=== PATIENT | female | born 1945 | race Caucasian/White ===

== ENCOUNTER 2023-01-30 07:22 | Inpatient (IN) ==
[2023-01-30] MEDS ORDERED: 0.9 % SODIUM CHLORIDE 1,000 ML IV ONE (07:24)
[2023-01-30 07:42] LABS: POC Calcium, Ionized 1.13 (1.16-1.32); POC Creatinine 0.9 (0.6-1.2); POC Potassium 3.8 (3.3-5.1)
--- NOTE | 2023-01-30 07:42 | Emergency Department Note ---
HPI General Chief complaint: Blood Pressure Problem Stated complaint: BP problem Time Seen by Provider: 01/30/23 07:24 Source: patient, family and EMS Mode of arrival: EMS Limitations: no limitations History of Present Illness HPI Narrative: Narrative: Patient presents to the ED via EMS due to complaints of hypotensive. EMS was called due to patient being weak and reported some shortness of breath. When this arrived they noted that her blood pressure was low in the 60s systolically. Stated improved up to about 86 systolically. Patient's daughter said that patient recently had a lung biopsy on the right side for mass which was done on 01/25/2023. Patient that she is just been feeling very weak. States that she fell twice last night on her right side. Patient states she is not sure if she hit her head during any of the 2 falls last night. She also takes blood pressure medication. Patient denies fever, chills, nausea, vomiting, cough, sputum production, cardiac chest pain, heart palpitations, scott pain, diarrhea, slurred speech, facial droopiness, extremity weakness, extremity numbness. Patient denies any other alleviating or aggravating factors. Patient expressed desire to be a DNR and her daughter who is at bedside confirms this. Related Data Home Medications Medication Instructions Recorded Confirmed acetaminophen 325 mg tablet 325 - 650 mg PO Q6H PRN Pain 12/31/22 01/21/23 albuterol sulfate 90 mcg/actuation 1 puff inhalation Q4H 12/31/22 01/21/23 aerosol inhaler aspirin 325 mg tablet 325 mg PO QDAY 12/31/22 01/25/23 atorvastatin 40 mg tablet 40 mg PO QHS 12/31/22 01/21/23 cholecalciferol (vitamin D3) 25 25 mcg PO QDAY 12/31/22 01/21/23 mcg (1,000 unit) tablet fluticasone propionate 50 1 spray intranasal QDAY 12/31/22 01/21/23 mcg/actuation nasal spray,suspension telmisartan 40 mg tablet 40 mg PO QHS 12/31/22 01/21/23 tolterodine 2 mg capsule,extended 2 mg PO QDAY 12/31/22 01/21/23 release 24 hr (Detrol LA) multivitamin 1 tab PO QDAY 01/11/23 01/21/23 polyethylene glycol 3350 17 gram 17 g PO QDAY PRN 01/11/23 01/21/23 oral powder packet Previous Rx's Medication Instructions Recorded tiotropium bromide 18 mcg capsule 1 cap inhalation QDAY #90 puffs 01/12/23 with inhalation device (Spiriva with HandiHaler) apixaban 5 mg tablet (Eliquis) 5 mg PO BID #180 tabs 01/19/23 tiotropium bromide 2.5 2 puff inhalation QDAY #4 grams 01/19/23 mcg/actuation mist for inhalation (Spiriva Respimat) Allergies Allergy/AdvReac Type Severity Reaction Status Date / Time hydrocodone Allergy Itching Verified 01/25/23 08:45 oxycodone Allergy Itching Verified 01/25/23 08:45 Review of Systems ROS ROS Narrative: Narrative: All systems ED: reviewed and negative except as stated. [facility] Narrative Patient History Narrative: Narrative: Medical/Surgical/Family History All Active Problems (Updated 01/30/23 @ 13:33 by Oni Mixon MD) Permanent atrial fibrillation (Acute) COPD (chronic obstructive pulmonary disease) (Acute) Elevated lactic acid level (Acute) Small cell carcinoma of lung (Acute) Acute UTI (Acute) Pleural effusion on right (Acute) Acute hypotension (Acute) Periorbital edema (Acute) Proximal muscle weakness (Acute) No pertinent past medical history (Chronic) Pulmonary embolism (Acute) Lung mass (Acute) Medical History (Updated 01/30/23 @ 13:33 by Oni Mixon MD) Hypertension No pertinent past medical history Surgical History No pertinent past surgical history Family History Mother Dementia Brother Cancer Father High blood pressure Social History Smoking Status: Current every day smoker Alcohol Intake Frequency: does not drink Substance Use: does not use Exam Narrative Narrative: Narrative: General Limitations: no limitations General appearance: Absent in distress Head Head: Present atraumatic Eye Eye: Present PERRL and EOMI ENT ENT: Present normal oropharynx and mucous membranes moist Neck Neck: Present normal inspection; Absent tenderness Chest Chest: Present normal inspection and tenderness Respiratory Respiratory: Present decreased breath sounds (On the right); Absent respiratory distress, wheezes, stridor or accessory muscle use Cardiovascular Cardiovascular: Present regular rate and normal rhythm Adbominal Abdominal: Present soft; Absent tenderness Back Back: Absent CVA tenderness (R), CVA tenderness (L) or L-S tenderness Neurological Neurological: Present alert and oriented X3 Psychiatric Psychiatric: Present normal affect and normal mood Skin Skin: Present warm (WNL) and intact Course Course Course Narrative: Patient was evaluated for hypotension and generalized weakness. UA was positive for UTI. Labs show that patient had normal white cell count with no leukocytosis. Lactic acid was elevated. Patient was tachycardic and tachypneic as well as hypotensive so she does meet sepsis criteria. Patient was bolused IV fluids and given IV Rocephin after blood cultures were obtained. Repeat lactic acid was within normal limits. Chest x-ray obtained with image reviewed myself which was concerning for a large right pleural effusion. CT of the chest was obtained and confirmed large thoracentesis with no pneumothorax. Patient had a recent fall so CT of the head and cervical spine was obtained and was unremarkable. Spoke with the radiologist who actually performed patient's biopsy and he states that there could be blood within that pleural effusion. Discussed with patient and they did want to go ahead with a thoracentesis. Radiologist took patient down to the radiology department and did ultrasound he states that the blood is too coagulated for drainage. He states that the above most likely will resolve on its own as patient would not be a good candidate for chest tube with streptokinase the most likely worsen her bleeding. Patient complained of pain in her right side secondary to a fall so she was given some IV fentanyl as well as oral Tylenol. Patient blood pressure did improve after IV fluids. She is still very weak and tachycardic. Believe patient would benefit for hospitalization. Case discussed with hospitalist who has agreed to admit the patient. Patient again is a DNR. Reevaluation(s) Reevaluation #1: Patient remains hemodynamic stable. No new complaints at this time. Time: 09:00 Consultations Consultation #1: Case discussed with hospitalist, Dr. Mixon, who has agreed to admit the patient. Time: 12:35 Vital Signs Vital signs: Vital Signs Temperature 97.8 F 01/30/23 07:33 Pulse Rate 96 H 01/30/23 07:33 Respiratory Rate 16 01/30/23 07:33 Blood Pressure 86/51 01/30/23 07:33 Pulse Oximetry (%) 96 01/30/23 07:33 Oxygen Delivery Method Room Air 01/30/23 07:33 Temperature 97.8 F 01/30/23 07:33 Pulse Rate 97 H 01/30/23 13:30 Respiratory Rate 25 H 01/30/23 12:46 Blood Pressure 92/78 01/30/23 13:30 Pulse Oximetry (%) 92 01/30/23 13:30 Oxygen Delivery Method Room Air 01/30/23 07:33 MDM MDM Narrative Medical decision making narrative: Narrative: Sepsis Sepsis Identified: Yes Time Zero: 1045 Differential Diagnosis Differential Diagnosis: Pneumothorax, sepsis, pneumonia Medical Records Medical records reviewed: Yes I reviewed the patient's medical records. Lab Data Lab results reviewed: Yes I reviewed the patient's lab results. 01/30/23 11:46 Labs: Lab Results 01/30/23 01/30/23 01/30/23 Range/Units 07:30 07:36 07:39 WBC 4.8 (4.5-11.0) K/mcL RBC 3.34 L (3.59-5.38) M/mcL Hgb 9.9 L (11.2-15.7) g/dL Hct 31.7 L (34.1-44.9) % POC Hct 29.0 L (36-48) MCV 94.9 (80.0-100.0) fL MCH 29.6 (26.0-34.0) pg MCHC 31.2 (31.0-36.0) g/dL RDW 14.6 H (11.5-14.5) % Plt Count 229 (140-440) K/mcL MPV 10.4 (8.8-12.5) fL Immature Gran % (Auto) 0.2 (0.0-0.5) % Neut % (Auto) 50.6 (38.0-78.0) % Lymph % (Auto) 35.3 (15.5-49.0) % Delta % (Auto) 10.2 (1.0-12.0) % Eos % (Auto) 2.7 (0.0-7.0) % Baso % (Auto) 1.0 (0.0-2.0) % Lymph # (Auto) 1.69 (1.50-4.80) K/mcL Delta # (Auto) 0.49 (0.10-0.90) K/mcL Eos # (Auto) 0.13 (0.00-0.70) K/mcL Baso # (Auto) 0.05 (0.00-0.30) K/mcL Immature Gran # 0.01 (0.00-0.05) K/mcl Absolute Neutrophils 2.42 (1.80-8.00) K/mcL Plt Func Collagen/Epi (82-175) sec POC VBG pH 7.38 (7.32-7.42) POC VBG pCO2 at Temp 44.7 (41-51) POC VBG pO2 25 (25-40) POC VBG HCO3 26.7 (24-28) POC VBG Total CO2 28.0 (25-29) POC Venous O2 Sat 44.0 (40-70) POC VBG Base Excess 2.0 (-2-2) VBG Lactic Acid 2.9 H (0.5-2) POC Sodium 138 (133-145) POC Potassium 3.8 (3.3-5.1) POC Chloride 102 (96-108) POC Total CO2 25.0 (22-30) POC BUN 19 (6-20) POC Creatinine 0.9 (0.6-1.2) POC Glucose 173 H (70-105) POC WB Ioniz Calcium 1.13 L (1.16-1.32) Urine Color Urine Appearance (Clear) Urine pH (5.0-9.0) Ur Specific [place] (1.000-1.035) Urine Protein (Negative) mg/dL Urine Glucose (UA) (Negative) mg/dL Urine Ketones (Negative) mg/dL Urine Occult Blood (Negative) mg/dL Urine Nitrate (Negative) Urine Bilirubin (Negative) mg/dL Urine Urobilinogen mg/dL Ur Leukocyte Esterase (Negative) /uL Urine RBC (0-1) /hpf Urine WBC (0-4) /hpf Ur Squamous Epith Cells (0-4) /hpf Urine Bacteria (0) /hpf Urine Mucus (None) /hpf Urine Yeast (Budding) (None) /hpf Ur Culture Indicated? 01/30/23 01/30/23 01/30/23 Range/Units 10:15 10:50 10:55 WBC (4.5-11.0) K/mcL RBC (3.59-5.38) M/mcL Hgb (11.2-15.7) g/dL Hct (34.1-44.9) % POC Hct (36-48) MCV (80.0-100.0) fL MCH (26.0-34.0) pg MCHC (31.0-36.0) g/dL RDW (11.5-14.5) % Plt Count (140-440) K/mcL MPV (8.8-12.5) fL Immature Gran % (Auto) (0.0-0.5) % Neut % (Auto) (38.0-78.0) % Lymph % (Auto) (15.5-49.0) % Delta % (Auto) (1.0-12.0) % Eos % (Auto) (0.0-7.0) % Baso % (Auto) (0.0-2.0) % Lymph # (Auto) (1.50-4.80) K/mcL Delta # (Auto) (0.10-0.90) K/mcL Eos # (Auto) (0.00-0.70) K/mcL Baso # (Auto) (0.00-0.30) K/mcL Immature Gran # (0.00-0.05) K/mcl Absolute Neutrophils (1.80-8.00) K/mcL Plt Func Collagen/Epi (82-175) sec POC VBG pH 7.45 H (7.32-7.42) POC VBG pCO2 at Temp 45.8 (41-51) POC VBG pO2 16 L (25-40) POC VBG HCO3 31.7 H (24-28) POC VBG Total CO2 33.0 H (25-29) POC Venous O2 Sat 23.0 L (40-70) POC VBG Base Excess 8.0 H* (-2-2) VBG Lactic Acid 1.4 1.6 (0.5-2) POC Sodium (133-145) POC Potassium (3.3-5.1) POC Chloride (96-108) POC Total CO2 (22-30) POC BUN (6-20) POC Creatinine (0.6-1.2) POC Glucose (70-105) POC WB Ioniz Calcium (1.16-1.32) Urine Color Yellow Urine Appearance Hazy A (Clear) Urine pH 5.0 (5.0-9.0) Ur Specific [place] 1.014 (1.000-1.035) Urine Protein Negative (Negative) mg/dL Urine Glucose (UA) Negative (Negative) mg/dL Urine Ketones Negative (Negative) mg/dL Urine Occult Blood >=1.0 A (Negative) mg/dL Urine Nitrate Negative (Negative) Urine Bilirubin Negative (Negative) mg/dL Urine Urobilinogen Negative mg/dL Ur Leukocyte Esterase 75 A (Negative) /uL Urine RBC > 182 H (0-1) /hpf Urine WBC 44 H (0-4) /hpf Ur Squamous Epith Cells < 1 (0-4) /hpf Urine Bacteria None (0) /hpf Urine Mucus Few A (None) /hpf Urine Yeast (Budding) Many A (None) /hpf Ur Culture Indicated? yes 01/30/23 01/30/23 Range/Units 11:46 11:46 WBC (4.5-11.0) K/mcL RBC (3.59-5.38) M/mcL Hgb (11.2-15.7) g/dL Hct (34.1-44.9) % POC Hct (36-48) MCV (80.0-100.0) fL MCH (26.0-34.0) pg MCHC (31.0-36.0) g/dL RDW (11.5-14.5) % Plt Count 220 (140-440) K/mcL MPV (8.8-12.5) fL Immature Gran % (Auto) (0.0-0.5) % Neut % (Auto) (38.0-78.0) % Lymph % (Auto) (15.5-49.0) % Delta % (Auto) (1.0-12.0) % Eos % (Auto) (0.0-7.0) % Baso % (Auto) (0.0-2.0) % Lymph # (Auto) (1.50-4.80) K/mcL Delta # (Auto) (0.10-0.90) K/mcL Eos # (Auto) (0.00-0.70) K/mcL Baso # (Auto) (0.00-0.30) K/mcL Immature Gran # (0.00-0.05) K/mcl Absolute Neutrophils (1.80-8.00) K/mcL Plt Func Collagen/Epi 73 L (82-175) sec POC VBG pH (7.32-7.42) POC VBG pCO2 at Temp (41-51) POC VBG pO2 (25-40) POC VBG HCO3 (24-28) POC VBG Total CO2 (25-29) POC Venous O2 Sat (40-70) POC VBG Base Excess (-2-2) VBG Lactic Acid (0.5-2) POC Sodium (133-145) POC Potassium (3.3-5.1) POC Chloride (96-108) POC Total CO2 (22-30) POC BUN (6-20) POC Creatinine (0.6-1.2) POC Glucose (70-105) POC WB Ioniz Calcium (1.16-1.32) Urine Color Urine Appearance (Clear) Urine pH (5.0-9.0) Ur Specific [place] (1.000-1.035) Urine Protein (Negative) mg/dL Urine Glucose (UA) (Negative) mg/dL Urine Ketones (Negative) mg/dL Urine Occult Blood (Negative) mg/dL Urine Nitrate (Negative) Urine Bilirubin (Negative) mg/dL Urine Urobilinogen mg/dL Ur Leukocyte Esterase (Negative) /uL Urine RBC (0-1) /hpf Urine WBC (0-4) /hpf Ur Squamous Epith Cells (0-4) /hpf Urine Bacteria (0) /hpf Urine Mucus (None) /hpf Urine Yeast (Budding) (None) /hpf Ur Culture Indicated? Radiology Data Radiology results reviewed: Yes I reviewed the patient's radiology results. Radiology results narrative: Chest x-ray obtained with image reviewed myself which shows large right pleural effusion, official read pending CT of the chest obtained with image reviewed myself which confirms right pleural effusion. EKG Data EKG #1: EKG attestation: Yes I reviewed and interpreted this EKG. EKG shows normal: sinus rhythm Rate: normal Heart block present: None ST segment elevation in: None ST segment depression in: None QTc: normal QRS morphology: Present normal Interpretation: no acute changes Core Measures AMI Core Measures Followed: Yes Discharge Plan Patient/Caregiver Discharge Instructions Pt seen by [employer] ADVISOR/PA only: No Clinical Impression: Pleural effusion on right, Acute hypotension, Elevated lactic acid level, Small cell carcinoma of lung, Acute UTI Patient Disposition: Xfer As Outpt/Obs ([facility]) Condition: Fair Follow up with: Odin Grimm DO [Primary Care Provider] - Prescriptions: No Action Spiriva with HandiHaler 18 mcg capsule, w/inhalation device 1 cap INHALATION QDAY Qty: 90 1RF Hold Instructions: Order Change Rx Instructions: puncture 1 cap using device; one dose = 2 inhalations Spiriva Respimat 2.5 mcg/actuation mist 2 puff inhalation QDAY Qty: 4 5RF Eliquis 5 mg tablet 5 mg PO BID Qty: 180 0RF multivitamin Tablet 1 tab PO QDAY tolterodine [Detrol LA] 2 mg Capsule,Extended Release 24hr 2 mg PO QDAY atorvastatin 40 mg Tablet 40 mg PO QHS acetaminophen 325 mg Tablet 325 - 650 mg PO Q6H PRN (Reason: Pain) aspirin 325 mg Tablet 325 mg PO QDAY telmisartan 40 mg Tablet 40 mg PO QHS albuterol sulfate 90 mcg/actuation Hfa Aerosol Inhaler 1 puff INHALATION Q4H fluticasone propionate 50 mcg/actuation [place],Suspension 1 spray INTRANASAL QDAY Rx Instructions: administer into each nostril cholecalciferol (vitamin D3) 25 mcg (1,000 unit) Tablet 25 mcg PO QDAY polyethylene glycol 3350 17 gram powder in packet 17 g PO QDAY PRN
--- NOTE | 2023-01-30 08:15 | Cat Scan Report ---
History: Fell, head injury, anticoagulated TECHNIQUE: The brain was imaged without contrast in axial plane at 2.5 mm intervals. Sagittal and coronal reformats were created. The radiation exposure was limited using dose reduction technology. FINDINGS: There are age-related degenerative changes with mild generalized atrophy both above and below the tentorium. Moderate white matter disease is present with patchy areas of decreased attenuation in the centrum semiovale throughout the frontal and parietal lobes. No infarct is detected. There is no hemorrhage or cerebral edema. Ventricles are normal in size line for atrophy. No abnormal extra-axial fluid collection is present. Bone windows show no skull fracture. Comparison with the prior head CT done on 11/16/22 shows no change. IMPRESSION: Stable age-related degenerative changes and no acute head injury Dr. Garcia was called with the report Interpreted and Authenticated by: Fady Kohler 01/30/23
--- NOTE | 2023-01-30 08:17 | Cat Scan Report ---
History: Fell, neck injury, anticoagulated TECHNIQUE: The neck was imaged without contrast in axial plane at 2.5 mm intervals. Sagittal and coronal reformats were created. The radiation exposure was limited using dose reduction technology. FINDINGS: There is a mild dextroscoliotic curvature. Cervico-occipital junction is normal. No fracture, spondylolisthesis or destructive bone lesion are present. Mild disc space narrowing is present at C5-6. There are small to intermediate size posterior bulging disks at C4-5, C5-6 and C6-7. There are also anterior spurs at those levels. The central canal and neural foramina appear normal in caliber. There is no paraspinal mass or hematoma. Large amount of calcified plaque is present in the carotid arteries, right greater than left. 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 Garcia was called with the report Interpreted and Authenticated by: Fady Kohler 01/30/23
--- NOTE | 2023-01-30 08:25 | Cat Scan Report ---
History: Fell last night, chest injury, anticoagulated, recent right lung biopsy on 01/25/23 TECHNIQUE: The chest was imaged without contrast in axial plane at 2.5 mm intervals. Sagittal, coronal and axial MIPS images were created. The radiation exposure was limited using dose reduction technology. There is a large poorly defined tumor encasing the right hilum. Measures roughly 5.8 cm. There is a peripheral mass posteriorly in the right lower lobe which had been biopsied on 01/25/23. Margins are partially obscured by adjacent atelectasis. Patient has developed a large right-sided pleural effusion. This is heterogeneous and may contain blood products. The effusion has increased significantly since the time of the recent biopsy. In addition patient has developed moderate atelectasis throughout the right lung. The left lung is relatively clear with no mass or infiltrate. The heart size is normal. Pacemaker is well-positioned. Atherosclerotic disease is present in the coronary arteries, aorta and great vessels arising from the aorta. Bone windows show an old healed fracture anterolaterally in the right first rib. No acute rib fracture is present and there is no evidence of bone metastasis. IMPRESSION: Large tumor centrally in the right lung with postobstructive atelectasis in the right middle and right lower lobes. Enlarging right-sided pleural effusion which may contain blood products Dr. Garcia was called with the report Interpreted and Authenticated by: Fady Kohler 01/30/23
[2023-01-30 08:36] LABS: Basophils # (Auto) 0.05 K/mcL (0.00-0.30); Eosinophils # (Auto) 0.13 K/mcL (0.00-0.70); Eosinophils % (Auto) 2.7 % (0.0-7.0); Hematocrit 31.7 % (34.1-44.9); Hemoglobin 9.9 g/dL (11.2-15.7); Lymphocytes # (Auto) 1.69 K/mcL (1.50-4.80); Lymphocytes % (Auto) 35.3 % (15.5-49.0); Mean Cell Volume 94.9 fL (80.0-100.0); Mean Corpuscular HGB Conc 31.2 g/dL (31.0-36.0); Mean Platelet Volume 10.4 fL (8.8-12.5); Monocytes # (Auto) 0.49 K/mcL (0.10-0.90); Monocytes % (Auto) 10.2 % (1.0-12.0); Neutrophils % (Auto) 50.6 % (38.0-78.0); Platelet Count 229 K/mcL (140-440); RBC 3.34 M/mcL (3.59-5.38); Red Cell Distribution Width 14.6 % (11.5-14.5); WBC 4.8 K/mcL (4.5-11.0)
--- NOTE | 2023-01-30 09:05 | XRay Report ---
HISTORY: Fell, chest injury, anticoagulated, recent right lung biopsy FINDINGS: There is a moderate size right-sided pleural effusion. There is dense consolidation of the right middle and lower lobes and a moderate diffuse alveolar infiltrate in the right upper lobe. Patient has a known tumor centrally in the right lung which is obscured by overlying consolidative lung and pleural fluid. The left lung is clear. The heart size is normal. No congestive heart failure is present. The pleural effusion and consolidation right lung have become worse since the time of the prior lung biopsy on 01/25/23 No fracture is identified. IMPRESSION: Enlarging right-sided pleural effusion and increasing consolidation in the right lung Interpreted and Authenticated by: Fady Kohler 01/30/23
[2023-01-30] MEDS ORDERED: fentaNYL 100 MCG/2 ML VIAL IV ONE (10:30)
[2023-01-30 11:58] LABS: Appearance,Urine HAZY (Clear); Bilirubin,Urine Negative (Negative); Color,Urine YELLOW; Culture Indicated,Urine yes; Glucose,Urine (UA) Negative (Negative); Ketones,Urine Negative (Negative); Leukocyte Esterase,Urine 75 /uL (Negative); Mucus,Urine FEW /hpf; Nitrate,Urine Negative (Negative); Protein,Urine Negative (Negative); Specific Gravity,Urine 1.014 (1.000-1.035); Urine Blood >=1.0 mg/dL (Negative); Urine Budding Yeast MANY /hpf; Urine RBC > 182 /hpf (0-1); Urine Squamous Epithelial Cell < 1 /hpf (0-4); Urine WBC 44 /hpf (0-4); Urobilinogen,Urine Negative
[2023-01-30] MEDS ORDERED: cefTRIAXone 2 GM in DEXTROSE 5% IN WATER 50 ML IV ONE (12:04)
[2023-01-30] MEDS ORDERED: ONDANSETRON 4 MG/2 ML VIAL IV ONE (12:43)
--- NOTE | 2023-01-30 13:24 | Internal Med History&Physical ---
HPI History of Present Illness Patient information: Note initiated : 01/30/23 at 1:20 pm Service Date, if different from initiated Date: [] Patient: Chrissy Stovall a 77 y/o F admitted on for BP problem. Chief Complaint: [weakness, fall, shortness of breath] Chief complaint: weakness, fall, shortness of breath History of present illness: Ms. Stovall is a 77 year old F history of atrial fibrillation's status post pacemaker, pulmonary embolism on Eliquis, essential hypertensions, COPD, presenting with a few day history of worsening weakness, recent fall, and shortness of breath. The following history is limited by the patient's mentations and clinical situations. Patient is committing of worsening general body weakness, recent fall, and shortness of breath. She does not recall the fall though. She is complaining urinary urgency and hesitancy but she denied any dysuria. She denies any fever or chills. She had was recently being found to have small cell carcinoma of the right lung. She has not started seeing any oncologist just yet. When the EMS arrived, it was reported that her blood pressure was low with systolic in the 60s mmHg. After a bolus of IV fluid given in the ED, the repeat blood pressure became 103/58mmHg. UA suggesting the presence of urinary tract infections. CT of the chest and CT chest showing enlarging right sided central located parenchymal tumor with moderate to large right sided pleural effusions. Our in-house radiologist was consulted for potential thoracentesis but he thinks that it is not a good idea because patient is on blood thinner and the patient is not currently hypoxic. Admission request is called for urinary tract infections, blood pressure management, and general weakness. Patient also need to follow-up with outpatient oncology. Constitutional Constitutional: Present weakness; Absent chills, excessive sweating, fatigue or fever(s) EENT Eyes: Absent blurry vision, change in vision, loss of vision or other visual disturbances Ears: Absent decreased hearing or tinnitus Nose, mouth and throat: Absent abnormal hearing, dry mouth, headache(s), nasal congestion or sore throat Cardiovascular Cardiovascular: Absent chest pain, chest pain at rest, edema, irregular heart rhythm or palpatations Respiratory Respiratory: Present dyspnea; Absent cough or wheezing Gastrointestinal Gastrointestinal: Absent abdominal pain, constipation, diarrhea, nausea or vomiting Genitourinary Genitourinary: Present urinary hesitancy and urinary urgency Musculoskeletal Musculoskeletal: Absent back pain, deformity, limited range of motion, muscle cramps, muscle weakness or numbness Integumentary Integumentary: Absent lesions, rash or wounds Neurological Neurological: Absent focal weakness, headache(s) or numbness Psychiatric Psychiatric: Absent anxiety, depression or hallucinations PFSH PFSH All Active Problems (Updated 01/30/23 @ 13:33 by Oni Mixon MD) Permanent atrial fibrillation (Acute) COPD (chronic obstructive pulmonary disease) (Acute) Elevated lactic acid level (Acute) Small cell carcinoma of lung (Acute) Acute UTI (Acute) Pleural effusion on right (Acute) Acute hypotension (Acute) Periorbital edema (Acute) Proximal muscle weakness (Acute) No pertinent past medical history (Chronic) Pulmonary embolism (Acute) Lung mass (Acute) Medical History (Updated 01/30/23 @ 13:33 by Oni Mixon MD) Hypertension No pertinent past medical history Surgical History No pertinent past surgical history Family History Mother Dementia Brother Cancer Father High blood pressure Social History marital status: occupational status: retired smoking status: Current every day smoker alcohol intake frequency: does not drink substance use type: does not use MEDS/ALLERGIES Home Medications and Allergies Home Medications Medication Instructions Recorded Confirmed Type acetaminophen 325 mg tablet 325 - 650 mg PO Q6H PRN Pain 12/31/22 01/21/23 History albuterol sulfate 90 mcg/actuation 1 puff inhalation Q4H 12/31/22 01/21/23 History aerosol inhaler aspirin 325 mg tablet 325 mg PO QDAY 12/31/22 01/25/23 History atorvastatin 40 mg tablet 40 mg PO QHS 12/31/22 01/21/23 History cholecalciferol (vitamin D3) 25 25 mcg PO QDAY 12/31/22 01/21/23 History mcg (1,000 unit) tablet fluticasone propionate 50 1 spray intranasal QDAY 12/31/22 01/21/23 History mcg/actuation nasal spray,suspension telmisartan 40 mg tablet 40 mg PO QHS 12/31/22 01/21/23 History tolterodine 2 mg capsule,extended 2 mg PO QDAY 12/31/22 01/21/23 History release 24 hr (Detrol LA) multivitamin 1 tab PO QDAY 01/11/23 01/21/23 History polyethylene glycol 3350 17 gram 17 g PO QDAY PRN 01/11/23 01/21/23 History oral powder packet tiotropium bromide 18 mcg capsule 1 cap inhalation QDAY #90 puffs 01/12/23 01/21/23 Rx with inhalation device (Spiriva with HandiHaler) apixaban 5 mg tablet (Eliquis) 5 mg PO BID #180 tabs 01/19/23 01/25/23 Rx tiotropium bromide 2.5 2 puff inhalation QDAY #4 grams 01/19/23 01/21/23 Rx mcg/actuation mist for inhalation (Spiriva Respimat) Allergies Allergy/AdvReac Type Severity Reaction Status Date / Time hydrocodone Allergy Itching Verified 01/25/23 08:45 oxycodone Allergy Itching Verified 01/25/23 08:45 EXAM Constitutional Vitals: Temp Pulse Resp BP Pulse Ox O2 Del Method 36.6 C 107 H 25 H 103/58 94 Room Air 01/30/23 07:33 01/30/23 12:42 01/30/23 12:42 01/30/23 11:31 01/30/23 12:42 01/30/23 07:33 General appearance: cooperative and no acute distress Head Head exam: Present atraumatic and normocephalic Eye Eye exam: Present EOMI and PERRL ENT ENT exam: Present mucous membranes moist, normal exam and normal external ear exam Neck Neck exam: Present normal inspection; Absent lymphadenopathy, tenderness or thyromegaly Respiratory Respiratory exam: Present decreased breath sounds; Absent accessory muscle use, respiratory distress or wheezes Cardiovascular Cardiovascular exam: Present irregular rhythm and tachycardia; Absent JVD Additional comments: pacemaker in place GI/Abdominal GI/Abdominal exam: Present normal bowel sounds and soft; Absent organomegaly or tenderness Extremities Exam Extremities exam: Present full ROM, normal capillary refill and normal inspection; Absent tenderness Neurological Exam Neurological exam: Present alert and CN II-XII intact; Absent motor sensory deficit Additional comments: oriented X2 to person and place Psychiatric Psychiatric exam: Present normal affect and normal mood; Absent anxious or depressed Skin Skin exam: Present dry and intact DATA Data Completed and Pending Labs: Labs from last 24 hours 01/30/23 01/30/23 01/30/23 11:46 11:46 10:55 WBC RBC Hgb Hct POC Hct MCV MCH MCHC RDW Plt Count 220 MPV Immature Gran % (Auto) Neut % (Auto) Lymph % (Auto) [place] % (Auto) Eos % (Auto) Baso % (Auto) Lymph # (Auto) [place] # (Auto) Eos # (Auto) Baso # (Auto) Immature Gran # Absolute Neutrophils PT Pending INR Pending APTT Pending Plt Func Collagen/Epi 73 L POC VBG pH POC VBG pCO2 at Temp POC VBG pO2 POC VBG HCO3 POC VBG Total CO2 POC Venous O2 Sat POC VBG Base Excess VBG Lactic Acid 1.6 POC Sodium POC Potassium POC Chloride POC Total CO2 POC BUN POC Creatinine POC Glucose POC WB Ioniz Calcium Urine Color Urine Appearance Urine pH Ur Specific [place] Urine Protein Urine Glucose (UA) Urine Ketones Urine Occult Blood Urine Nitrate Urine Bilirubin Urine Urobilinogen Ur Leukocyte Esterase Urine RBC Urine WBC Ur Squamous Epith Cells Urine Bacteria Urine Mucus Urine Yeast (Budding) Ur Culture Indicated? 01/30/23 01/30/23 01/30/23 10:50 10:15 07:39 WBC RBC Hgb Hct POC Hct 29.0 L MCV MCH MCHC RDW Plt Count MPV Immature Gran % (Auto) Neut % (Auto) Lymph % (Auto) [place] % (Auto) Eos % (Auto) Baso % (Auto) Lymph # (Auto) [place] # (Auto) Eos # (Auto) Baso # (Auto) Immature Gran # Absolute Neutrophils PT INR APTT Plt Func Collagen/Epi POC VBG pH 7.45 H POC VBG pCO2 at Temp 45.8 POC VBG pO2 16 L POC VBG HCO3 31.7 H POC VBG Total CO2 33.0 H POC Venous O2 Sat 23.0 L POC VBG Base Excess 8.0 H* VBG Lactic Acid 1.4 POC Sodium 138 POC Potassium 3.8 POC Chloride 102 POC Total CO2 25.0 POC BUN 19 POC Creatinine 0.9 POC Glucose 173 H POC WB Ioniz Calcium 1.13 L Urine Color Yellow Urine Appearance Hazy A Urine pH 5.0 Ur Specific [place] 1.014 Urine Protein Negative Urine Glucose (UA) Negative Urine Ketones Negative Urine Occult Blood >=1.0 A Urine Nitrate Negative Urine Bilirubin Negative Urine Urobilinogen Negative Ur Leukocyte Esterase 75 A Urine RBC > 182 H Urine WBC 44 H Ur Squamous Epith Cells < 1 Urine Bacteria None Urine Mucus Few A Urine Yeast (Budding) Many A Ur Culture Indicated? yes 01/30/23 01/30/23 07:36 07:30 WBC 4.8 RBC 3.34 L Hgb 9.9 L Hct 31.7 L POC Hct MCV 94.9 MCH 29.6 MCHC 31.2 RDW 14.6 H Plt Count 229 MPV 10.4 Immature Gran % (Auto) 0.2 Neut % (Auto) 50.6 Lymph % (Auto) 35.3 [place] % (Auto) 10.2 Eos % (Auto) 2.7 Baso % (Auto) 1.0 Lymph # (Auto) 1.69 [place] # (Auto) 0.49 Eos # (Auto) 0.13 Baso # (Auto) 0.05 Immature Gran # 0.01 Absolute Neutrophils 2.42 PT INR APTT Plt Func Collagen/Epi POC VBG pH 7.38 POC VBG pCO2 at Temp 44.7 POC VBG pO2 25 POC VBG HCO3 26.7 POC VBG Total CO2 28.0 POC Venous O2 Sat 44.0 POC VBG Base Excess 2.0 VBG Lactic Acid 2.9 H POC Sodium POC Potassium POC Chloride POC Total CO2 POC BUN POC Creatinine POC Glucose POC WB Ioniz Calcium Urine Color Urine Appearance Urine pH Ur Specific [place] Urine Protein Urine Glucose (UA) Urine Ketones Urine Occult Blood Urine Nitrate Urine Bilirubin Urine Urobilinogen Ur Leukocyte Esterase Urine RBC Urine WBC Ur Squamous Epith Cells Urine Bacteria Urine Mucus Urine Yeast (Budding) Ur Culture Indicated? A/P Assessment and plan (1) Small cell carcinoma of lung: Status: Acute (2) Acute UTI: Status: Acute (3) Acute hypotension: Status: Acute (4) Pleural effusion on right: Status: Acute (5) Pulmonary embolism: Status: Acute (6) COPD (chronic obstructive pulmonary disease): Status: Acute (7) Permanent atrial fibrillation: Status: Acute Narrative A/P Narrative: Assessment and Plans: 1. UTI: Observation med surg telemetry Serial lactic acid Procalcitonin level Blood culture Urine culture s/p IV fluid bolus given in the ED, to be followed by NS@100cc/hr Rocephin Hold oral antihypertensives from home regimen Physical therapy evaluation and treatment for possible placement 2. h/o recently diagnosed right small cell carcinoma of the lung with right sided pleural effusion: Need outpatient appointment with oncology Hold Aspirin/Eliquis in case if and when thoracentesis is indicated Repeat CXR in the morning to follow up Supplemental oxygen therapy 3. h/o hypertension: Currently borderline hypotensives, Hold oral antihypertensives from home regimen 4. h/o permanent atrial fibrillation s/p pacemaker placement: Hold Aspirin/Eliquis in case if and when thoracentesis is indicated Lopressor IV PRN HR>120bpm 5. h/o Pulmonary embolism: Hold Aspirin/Eliquis in case if and when thoracentesis is indicated 6. h/o COPD: Stable, continue bronchodilators from home regimen GI ppx: not currently indicated DVT ppx: SCDs Code status: Full Prognosis: guarded Disposition: observation med surg tele Time Spent With Patient Time: Total time spent is greater than 50% in coordination of care (as documented) at patient's floor/unit and/or counseling patient: Initial: Total time with patient: 55 - 74 minutes
[2023-01-30] MEDS ORDERED: ACETAMINOPHEN 325 MG TABLET PO ONE (13:43)
[2023-01-30 14:55] LABS: INR 1.2 (0.9-1.1); Partial Thromboplastin Time 30.7 sec (20.0-37.0); Prothrombin Time 15.3 sec (11.9-14.5)
--- NOTE | 2023-01-30 15:34 | Ultrasound Report ---
History: Newly diagnosed small cell right-sided lung cancer, large right-sided pleural effusion seen on preceding CT, dyspnea FINDINGS: Patient had been scheduled for a thoracentesis. There is a large amount of organized clot throughout the right chest. Only a small amount of liquefied fluid is seen above the right costophrenic sulcus. The clot cannot be aspirated. There is not enough free fluid to justify thoracentesis. The procedure was canceled. IMPRESSION: Large amount of organized clot throughout the right thorax Interpreted and Authenticated by: Fady Kohler 01/30/23
[2023-01-30] MEDS ORDERED: IOPAMIDOL 100 ML BOTTLE IV ONE (15:40)
[2023-01-30] MEDS ORDERED: ACETAMINOPHEN 325 MG TABLET PO PRN (15:41)
[2023-01-30] MEDS ORDERED: ONDANSETRON 4 MG/2 ML VIAL IV PRN (15:41)
[2023-01-30] MEDS ORDERED: METOPROLOL TARTRATE 5 MG/5 ML VIAL IV PRN (15:41)
[2023-01-30] MEDS ORDERED: IPRATROPIUM/ALBUTEROL 3 ML AMPUL.NEB NEB PRN (15:41)
[2023-01-30] MEDS ORDERED: cefTRIAXone 1 GM in DEXTROSE 5% IN WATER 50 ML IV SCH (15:41)
[2023-01-30] MEDS: 0.9 % SODIUM CHLORIDE 1,000 ML IV SCH (15:57)
[2023-01-30] MEDS: 0.9 % SODIUM CHLORIDE 10 ML SYRINGE IV SCH ×2 (15:57→21:48)
--- NOTE | 2023-01-30 18:35 | Cat Scan Report ---
History: Small cell lung cancer in right side, right-sided hemothorax, chest pain and shortness of breath, evaluate for pulmonary emboli TECHNIQUE: Following injection of intravenous nonionic contrast the patient was imaged during the pulmonary arterial phase scanning from the thoracic inlet through the diaphragms. Sagittal and coronal reformats were created. The radiation exposure was limited using dose reduction technology. FINDINGS: There is a moderate size poorly defined tumor located centrally in the right lung. This encases the right hilum. Is causing high-grade extrinsic compression of the pulmonary arteries to the right upper lobe and right middle lobe. Is also causing severe compression and narrowing of the bronchus intermedius. There is significant postobstructive atelectasis of the right middle and lower lobes. A vague alveolar infiltrate is present in the right upper lobe. There is a large right-sided hemothorax. The clot is of varying age with some solid and other parts semisolid. Preceding ultrasound showed most of the clot is solid and could not be drained with ultrasound guidance. The large hemothorax is displacing the mediastinum to the left. No intraluminal filling defects are present within the pulmonary arteries. The arteries and left lung are normal. The recently biopsied mass located posteriorly in the right lower lobe is obscured by surrounding clot. Bone windows show no rib fracture or bone metastasis. The heart size is normal. Patient has a pacemaker. IMPRESSION: No evidence of pulmonary emboli. Tumor located centrally in the right lung which is occluding and distorting the arteries and bronchi. Large right-sided hemothorax Dr. Mixon was called with the report Interpreted and Authenticated by: Fady Kohler 01/30/23
[2023-01-30] MEDS ORDERED: SENNOSIDES 1 TABLET PO SCH (21:00)
[2023-01-30] MEDS ORDERED: DOCUSATE SODIUM 100 MG CAPSULE PO SCH (21:00)
[2023-01-30] MEDS ORDERED: traZODone HCL 50 MG TABLET PO PRN (21:00)
[2023-01-30] MEDS: morphine 2 MG/ML VIAL IV PRN (21:41)
[2023-01-30] MEDS ORDERED: ALBUTEROL SULFATE 60 PUFF INHALER INH SCH (23:45)
[2023-01-30] MEDS ORDERED: POLYETHYLENE GLYCOL 3350 17 GM PACKET PO PRN (23:58)
--- NOTE | 2023-01-31 00:08 | Discharge Summary ---
Discharge Provider Provider IMPORTANT FOLLOW-UP INFORMATION FOR PCP: Patient information: Note initiated : 01/31/23 at 12:07 am Service Date, if different from initiated Date: [] Patient: Chrissy Stovall 77 y/o F admitted on 01/30/23 for BP problem. Chief Complaint: [] Date of admission: 01/30/23 15:39 Discharge date: 01/31/23 Primary care physician: Odin Grimm DO Attending physician on admission: Oni Mixon Consults: 01/30/23 12:29 Consult to Physician [CONS] Stat Comment: Consulting Provider: Oni Mixon Reason For Exam: Physician to Consult Attending physician on discharge: Oni Mixon COURSE Hospital Course Hospital course: Ms. Stovall is a 77 year old F history of atrial fibrillation's status post pacemaker, pulmonary embolism on Eliquis, essential hypertensions, COPD, presenting with a few day history of worsening weakness, recent fall, and shortness of breath. The following history is limited by the patient's mentations and clinical situations. Patient is committing of worsening general body weakness, recent fall, and shortness of breath. She does not recall the fall though. She is complaining urinary urgency and hesitancy but she denied any dysuria. She denies any fever or chills. She had was recently being found to have small cell carcinoma of the right lung. She has not started seeing any oncologist just yet. When the EMS arrived, it was reported that her blood pressure was low with systolic in the 60s mmHg. After a bolus of IV fluid given in the ED, the repeat blood pressure became 103/58mmHg. UA suggesting the presence of urinary tract infections. CT of the chest and CT chest showing enlarging right sided central located parenchymal tumor with moderate to large right sided pleural effusions. Our in-house radiologist was consulted for potential thoracentesis but he thinks that it is not a good idea because patient is on blood thinner and the patient is not currently hypoxic. Admission request is called for urinary tract infections, blood pressure management, and general weakness. Patient also need to follow-up with outpatient oncology. Subsequent CT chest angiogram showing large tumor measuring >6cm in the right hilum with extrinsic mass effects with compression of the right pulmonary arteries and right bronchus. Right hemothorax with blood clots of different ages, as well as solid tumor burden and semi-solid substances. I discussed the case with hospitalist Dr. Mcleod as well as their slotter operator helper for potential transfer for higher level of care. They kindly accepted the patient to their PCU unit. Discharge diagnosis: Small cell lung cancer, respiratory failure, right hemothorax, UTI Time Spent with Patient Time attestation: Total time spent providing and/or coordinating discharge services: Time spent: Greater than 30 minutes EXAM Constitutional Vitals: Temp Pulse Resp BP Pulse Ox O2 Del Method O2 Flow Rate 36.7 C 90 20 112/60 95 [place] 6 01/31/23 00:00 01/31/23 00:00 01/31/23 00:00 01/31/23 00:00 01/31/23 00:00 01/31/23 00:00 01/31/23 00:00 General appearance: cooperative and mild distress Head Head exam: Present atraumatic and normocephalic Eye Eye exam: Present EOMI and PERRL ENT ENT exam: Present mucous membranes moist, normal exam and normal external ear exam Additional comments: Nasal cannula in place Neck Neck exam: Present normal inspection; Absent lymphadenopathy, tenderness or thyromegaly Respiratory Respiratory exam: Present decreased breath sounds; Absent accessory muscle use, respiratory distress or wheezes Cardiovascular Cardiovascular exam: Present normal rate and rhythm; Absent JVD Additional comments: Pacemaker in place GI/Abdominal GI/Abdominal exam: Present normal bowel sounds and soft; Absent organomegaly or tenderness Extremities Exam Extremities exam: Present full ROM, normal capillary refill and normal inspection; Absent tenderness Neurological Exam Neurological exam: Present alert and CN II-XII intact; Absent motor sensory deficit Additional comments: oriented X2 to person and place only Psychiatric Psychiatric exam: Present normal affect and normal mood; Absent anxious or depressed Skin Skin exam: Present dry and intact Discharge Data Data Completed and Pending Labs on day of discharge: Labs from last 24 hours 01/30/23 01/30/23 01/30/23 11:46 11:46 10:55 WBC RBC Hgb Hct POC Hct MCV MCH MCHC RDW Plt Count 220 MPV Immature Gran % (Auto) Neut % (Auto) Lymph % (Auto) [place] % (Auto) Eos % (Auto) Baso % (Auto) Lymph # (Auto) [place] # (Auto) Eos # (Auto) Baso # (Auto) Immature Gran # Absolute Neutrophils PT 15.3 H INR 1.2 H APTT 30.7 Plt Func Collagen/Epi 73 L POC VBG pH POC VBG pCO2 at Temp POC VBG pO2 POC VBG HCO3 POC VBG Total CO2 POC Venous O2 Sat POC VBG Base Excess VBG Lactic Acid 1.6 POC Sodium POC Potassium POC Chloride POC Total CO2 POC BUN POC Creatinine POC Glucose POC WB Ioniz Calcium Procalcitonin Urine Color Urine Appearance Urine pH Ur Specific [place] Urine Protein Urine Glucose (UA) Urine Ketones Urine Occult Blood Urine Nitrate Urine Bilirubin Urine Urobilinogen Ur Leukocyte Esterase Urine RBC Urine WBC Ur Squamous Epith Cells Urine Bacteria Urine Mucus Urine Yeast (Budding) Ur Culture Indicated? 01/30/23 01/30/23 01/30/23 10:50 10:15 07:39 WBC RBC Hgb Hct POC Hct 29.0 L MCV MCH MCHC RDW Plt Count MPV Immature Gran % (Auto) Neut % (Auto) Lymph % (Auto) [place] % (Auto) Eos % (Auto) Baso % (Auto) Lymph # (Auto) [place] # (Auto) Eos # (Auto) Baso # (Auto) Immature Gran # Absolute Neutrophils PT INR APTT Plt Func Collagen/Epi POC VBG pH 7.45 H POC VBG pCO2 at Temp 45.8 POC VBG pO2 16 L POC VBG HCO3 31.7 H POC VBG Total CO2 33.0 H POC Venous O2 Sat 23.0 L POC VBG Base Excess 8.0 H* VBG Lactic Acid 1.4 POC Sodium 138 POC Potassium 3.8 POC Chloride 102 POC Total CO2 25.0 POC BUN 19 POC Creatinine 0.9 POC Glucose 173 H POC WB Ioniz Calcium 1.13 L Procalcitonin Urine Color Yellow Urine Appearance Hazy A Urine pH 5.0 Ur Specific [place] 1.014 Urine Protein Negative Urine Glucose (UA) Negative Urine Ketones Negative Urine Occult Blood >=1.0 A Urine Nitrate Negative Urine Bilirubin Negative Urine Urobilinogen Negative Ur Leukocyte Esterase 75 A Urine RBC > 182 H Urine WBC 44 H Ur Squamous Epith Cells < 1 Urine Bacteria None Urine Mucus Few A Urine Yeast (Budding) Many A Ur Culture Indicated? yes 01/30/23 01/30/23 01/30/23 07:36 07:30 07:30 WBC 4.8 RBC 3.34 L Hgb 9.9 L Hct 31.7 L POC Hct MCV 94.9 MCH 29.6 MCHC 31.2 RDW 14.6 H Plt Count 229 MPV 10.4 Immature Gran % (Auto) 0.2 Neut % (Auto) 50.6 Lymph % (Auto) 35.3 [place] % (Auto) 10.2 Eos % (Auto) 2.7 Baso % (Auto) 1.0 Lymph # (Auto) 1.69 [place] # (Auto) 0.49 Eos # (Auto) 0.13 Baso # (Auto) 0.05 Immature Gran # 0.01 Absolute Neutrophils 2.42 PT INR APTT Plt Func Collagen/Epi POC VBG pH 7.38 POC VBG pCO2 at Temp 44.7 POC VBG pO2 25 POC VBG HCO3 26.7 POC VBG Total CO2 28.0 POC Venous O2 Sat 44.0 POC VBG Base Excess 2.0 VBG Lactic Acid 2.9 H POC Sodium POC Potassium POC Chloride POC Total CO2 POC BUN POC Creatinine POC Glucose POC WB Ioniz Calcium Procalcitonin 0.09 Urine Color Urine Appearance Urine pH Ur Specific [place] Urine Protein Urine Glucose (UA) Urine Ketones Urine Occult Blood Urine Nitrate Urine Bilirubin Urine Urobilinogen Ur Leukocyte Esterase Urine RBC Urine WBC Ur Squamous Epith Cells Urine Bacteria Urine Mucus Urine Yeast (Budding) Ur Culture Indicated? Discharge Plan Patient/Caregiver Discharge Instructions Activity: increase activity as tolerated Diet: Regular Diet Prescriptions: Continued Spiriva with HandiHaler 18 mcg capsule, w/inhalation device 1 cap INHALATION QDAY Qty: 90 1RF Hold Instructions: Order Change Rx Instructions: puncture 1 cap using device; one dose = 2 inhalations Spiriva Respimat 2.5 mcg/actuation mist 2 puff inhalation QDAY Qty: 4 5RF multivitamin Tablet 1 tab PO QDAY tolterodine [Detrol LA] 2 mg Capsule,Extended Release 24hr 2 mg PO QDAY atorvastatin 40 mg Tablet 40 mg PO QHS acetaminophen 325 mg Tablet 325 - 650 mg PO Q6H PRN (Reason: Pain) albuterol sulfate 90 mcg/actuation Hfa Aerosol Inhaler 1 puff INHALATION Q4H fluticasone propionate 50 mcg/actuation [place],Suspension 1 spray INTRANASAL QDAY Rx Instructions: administer into each nostril cholecalciferol (vitamin D3) 25 mcg (1,000 unit) Tablet 25 mcg PO QDAY polyethylene glycol 3350 17 gram powder in packet 17 g PO QDAY PRN (Reason: Constipation) Discontinued Eliquis 5 mg tablet 5 mg PO BID Qty: 180 0RF aspirin 325 mg Tablet 325 mg PO QDAY telmisartan 40 mg Tablet 40 mg PO QHS Follow Up Plan Follow up with: Odin Grimm DO [Primary Care Provider] - Patient Disposition: Xfer [facility] Prognosis: Fair Rehab Potential: Fair I certify that the patient requires SNF services: No Overall status at discharge: patient is not back to baseline Discharge Orders: Discharge Order (Routine); Ordered 01/31/23 Ordered By: Oni GAMEZ VTE Deep Vein Thrombosis/Pulmonary Embolism Present on Admission: No
[2023-01-31] MEDS: morphine 2 MG/ML VIAL IV PRN (00:55)
[2023-01-31] MEDS: 0.9 % SODIUM CHLORIDE 1,000 ML IV SCH (01:54)
[2023-01-31] MEDS ORDERED: FLUTICASONE PROPIONATE SPRAY.NAS NS SCH (09:00)
[2023-01-31] MEDS ORDERED: NON FORMULARY MEDICATION 1 DOSE MISCELL (Multivitamin tablet) PO SCH (09:00)
[2023-01-31] MEDS ORDERED: TOLTERODINE 2 MG CAP.XL.24H PO SCH (09:00)
[2023-01-31] MEDS ORDERED: TIOTROPIUM BROMIDE 18 MCG INHALANT INH SCH (09:00)
[2023-01-31] MEDS ORDERED: cefTRIAXone 1 GM VIAL IV SCH (09:00)
[2023-01-31] MEDS ORDERED: NON FORMULARY MEDICATION 1 DOSE MISCELL (Tiotropium Bromide [Spiriva Respimat] 2.5 mcg/act INHALATION SCH (09:00)
[2023-01-31] MEDS ORDERED: VITAMIN D3 25 MCG TABLET PO SCH (09:00)
[2023-01-31] MEDS ORDERED: ATORVASTATIN 40 MG TABLET PO SCH (21:00)
--- NOTE | 2023-02-01 15:45 | EKG ---
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 Measurements Intervals [place] Rate: 94 P: 47 ID: [id number] QRS: -41 QRSD: 102 T: 149 QT: 348 QTc: 436 Interpretive Statements A-V dual-paced complexes w/ some inhibition No further analysis attempted due to paced rhythm Electronically Signed On 02-01-2023 15:44:55 PDT by Odin Kohler M.D. /[email or web address]/[id number]
== END 2023-01-31 01:45 | disposition short-term general hospital (02) | DRG 180 ==
LOC: MEDSUR 07:22 → ED 07:22 → MEDSUR 15:51
PROVIDERS: ADMIT Internal Medicine; ATTEND Internal Medicine